=== PATIENT | male | born 1950 ===

== ENCOUNTER 2020-09-24 12:29 | Emergency (ER) | payer OTHER ==
[~2020-09-24] VITALS: Ht 190.5 cm; Wt 92.0 kg
[2020-09-24] MEDS ORDERED: SODIUM CHLORIDE FLUSH 10ML SYR IVF ONE (13:00)
[2020-09-24 13:20] LABS: BASOPHILS % (AUTO) 1 % (0-1); EOSINOPHILS % (AUTO) 6 % (1-7); LYMPHOCYTES % (AUTO) 25 % (22-44); MD NO; MEAN CORPUSCULAR HEMOGLOBIN 31.9 pg (27.5-34.5); MEAN CORPUSCULAR HGB CONC 33.9 g/dL (33.2-36.2); MEAN PLATELET VOLUME 8.8 fL (7.4-10.4); MONOCYTES % (AUTO) 7 % (2-9); NEUTROPHILS % (AUTO) 61 % (42-75); PLATELET COUNT 163 x10^3/uL (130-400); RED BLOOD COUNT 4.93 x10^6/uL (4.38-5.82); RED CELL DISTRIBUTION WIDTH 13.6 % (9.4-14.8)
[2020-09-24 13:30] LABS: ALANINE AMINOTRANSFERASE 28 U/L (12-78); ALBUMIN 3.5 g/dL (3.4-5.0); ANION GAP 3 mmol/L (5-15); CHLORIDE 108 mmol/L (98-107)
[2020-09-24 13:33] LABS: ALKALINE PHOSPHATASE 81 U/L (45-117); BILIRUBIN,TOTAL 0.4 mg/dL (0.2-1.0); INTERNATIONAL NORMALIZED RATIO 1.08 (0.93-1.1); PROTHROMBIN TIME 11.4 Seconds (9.6-11.5); TOTAL PROTEIN 7.1 g/dL (6.4-8.2)
--- NOTE | 2020-09-24 13:48 | NUR ---
PT RESTING ON GURNEY IN NAD, VSS. PT'S AT BEDSIDE. CALL LIGHT WITHIN REACH.
--- NOTE | 2020-09-24 13:55 | NUR ---
PT TRANSPORTED TO CT.
[2020-09-24] MEDS ORDERED: OMNIPAQUE 350 MG/ML, 100ML BOTTLE ONE (14:22)
[2020-09-24 15:59] VITALS: BP 126/70
== END 2020-09-24 16:18 | disposition home or self-care (01) ==
LOC: ED 13:36
DX: I71.3 Abdominal aortic aneurysm, ruptured (principal); R94.31 Abnormal electrocardiogram [ECG] [EKG]
CPT/HCPCS: 36415; 71275; 74174; 80053; 83605; 85025; 85610; 85730; 93005; 99284; Q9967

== ENCOUNTER → 2020-10-11 | Outpatient (CLI) | payer OTHER ==
[~2020-10-11] MED LIST: ASCO500C2 PO; ASPI81TA45 PO; MULT-658 PO; OMEG-170 PO
== END | disposition home or self-care (01) ==
LOC: STAR 12:27
PROVIDERS: ATTEND Anesthesiology
DX: Z20.828 Contact with and (suspected) exposure to other viral communicable diseases (principal)
CPT/HCPCS: 87635